=== PATIENT | female | born 1930 | race Caucasian/White ===

== ENCOUNTER 2016-08-27 04:34 | Inpatient (IN) | payer MEDICARE, OTHER ==
[2016-08-27] MEDS ORDERED: FENTANYL CITRATE INJ/PF 100 MCG/2 ML AMPUL IV ONE ×2 (04:54→06:18)
--- NOTE | 2016-08-27 04:55 | ER Document Report ---
ED GI/ - General Chief Complaint: Abdominal Pain Stated Complaint: ABDOMINAL PAIN Time Seen by Provider: 08/27/16 04:51 Notes: Patient is an 85-year-old female who comes emergency department for chief complaint of abdominal pain, pain is in the center of her abdomen, she states it started today and has not gone away. She did have a bowel movement earlier today, she has not vomited, she denies nausea, she denies fever. History of umbilical hernia which she has declined treatment for in the past, she has had hysterectomy, she denies other surgeries on her abdomen. Patient is medicated for hypertension. She is not on a blood thinner. TRAVEL OUTSIDE OF THE [place] IN LAST 30 DAYS: No - Related Data Allergies/Adverse Reactions: Sulfa (Sulfonamide Antibiotics) Allergy (Verified 08/27/16 07:58) Past Medical History - General Information source: Patient - Social History Smoking Status: Never Smoker Frequency of alcohol use: None Drug Abuse: None Lives with: Family Family History: Reviewed & Not Pertinent - Past Medical History Cardiac Medical History: Reports: Hx Hypertension Musculoskeltal Medical History: Reports Hx Arthritis, Reports Hx Musculoskeletal Deformity - Immunizations Immunizations up to date: Yes Review of Systems - Review of Systems Constitutional: No symptoms reported EENT: No symptoms reported Cardiovascular: No symptoms reported Respiratory: No symptoms reported Gastrointestinal: See HPI Genitourinary: No symptoms reported Female Genitourinary: No symptoms reported Musculoskeletal: No symptoms reported Skin: No symptoms reported Hematologic/Lymphatic: No symptoms reported Neurological/Psychological: No symptoms reported Physical Exam - Vital signs Vitals: Temp Pulse Resp BP Pulse Ox 97.7 F 80 18 151/69 H 96 08/27/16 04:37 08/27/16 04:37 08/27/16 04:37 08/27/16 04:37 08/27/16 04:37 Interpretation: Normal - General General appearance: Appears well In distress: None - HEENT Head: Normocephalic, Atraumatic Eyes: Normal Pupils: PERRL - Respiratory Respiratory status: No respiratory distress Chest status: Nontender Breath sounds: Normal Chest palpation: Normal - Cardiovascular Rhythm: Regular Heart sounds: Normal auscultation Murmur: No - Abdominal Inspection: Other - umbilical hernia with some erythema, some tenderness, not significantly hard Bowel sounds: Normal Tenderness: Tender - Back Back: Normal, Nontender - Extremities General upper extremity: Normal inspection, Nontender, Normal color, Normal ROM , Normal temperature General lower extremity: Normal inspection, Nontender, Normal color, Normal ROM , Normal temperature, Normal weight bearing. No: Dilip's sign - Neurological Neuro grossly intact: Yes Cognition: Normal Orientation: AAOx4 Stephen Coma Scale Eye Opening: Spontaneous [place] Coma Scale Verbal: Oriented Stephen Coma Scale Motor: Obeys Commands [place] Coma Scale Total: 15 Speech: Normal Motor strength normal: LUE, RUE, LLE, RLE Sensory: Normal - Psychological Associated symptoms: Normal affect, Normal mood - Skin Skin Temperature: Warm Skin Moisture: Dry Skin Color: Normal Course - Re-evaluation Re-evalutation: Patient with incarcerated umbilical hernia, patient does not want to have surgery, she wants to have this reduced, there is some erythema at the site, area is not severely tender, however I am unable to reduce this. Dr. Cole to bedside, also unable to reduce this. CBC, chemistry, lactic acid are unremarkable. Discussed with surgery, Dr. Rayo, he will come and evaluate the patient. Surgeon cannot reduce this at bedside, recommend CAT scan be performed. Also adding preop labs on request. Patient was evaluated by surgeon Dr. Ash, he has canceled the CAT scan, states he will take the patient to the operating room. - Vital Signs Vital signs: Temp Pulse Resp BP Pulse Ox 97.7 F 80 18 151/69 H 96 08/27/16 04:37 08/27/16 04:37 08/27/16 04:37 08/27/16 04:37 08/27/16 04:37 - Laboratory Result Diagrams: 08/27/16 05:10 08/27/16 05:10 Laboratory results interpreted by me: 08/27/16 05:10 Sodium 129.3 L Glucose 114 H Discharge - Discharge Clinical Impression: Strangulated umbilical hernia Abdominal pain Qualifiers: Abdominal location: generalized Qualified Code(s): R10.84 - Generalized abdominal pain Condition: Serious Disposition: ADMITTED INPATIENT Admitting Provider: Surgicalist Unit Admitted: OR Referrals: ASAF CHUA DO [Primary Care Provider] - Follow up as needed
[2016-08-27 05:24] LABS: ABSOLUTE BASOPHILS # (AUTO) 0.2 10^3/uL (0.0-0.2); ABSOLUTE LYMPHOCYTES (AUTO) 1.8 10^3/uL (0.5-4.7); ABSOLUTE MONOCYTES (AUTO) 0.5 10^3/uL (0.1-1.4); ABSOLUTE NEUT (AUTO) 5.4 10^3/uL (1.7-8.2); EOSINOPHILS % (AUTO) 0.4 % (0-6); HEMATOCRIT 37.4 % (36.0-47.0); HEMOGLOBIN 12.5 g/dL (12.0-15.5); HGB HCT DIFFERENCE 0.1; MEAN CORPUSCULAR HEMOGLOBIN 28.6 pg (27.0-33.4); MEAN CORPUSCULAR HGB CONC 33.4 g/dL (32.0-36.0); MEAN CORPUSCULAR VOLUME 86 fl (80-97); MONOCYTES % (AUTO) 6.1 % (3-13); RED BLOOD COUNT 4.37 10^6/uL (3.72-5.28); RED CELL DISTRIBUTION WIDTH 13.6 % (11.5-14.0); SEGMENTED NEUTROPHILS % (AUTO) 68.5 % (42-78); WHITE BLOOD COUNT 7.9 10^3/uL (4.0-10.5)
[2016-08-27 05:42] LABS: ALANINE AMINOTRANSFERASE 26 U/L (9-52); ALBUMIN 3.7 g/dL (3.5-5.0); ALKALINE PHOSPHATASE 73 U/L (38-126); ANION GAP 7 (5-19); ASPARTATE AMINO TRANSFERASE 32 U/L (14-36); BILIRUBIN,DIRECT 0.2 mg/dL (0.0-0.4); BILIRUBIN,TOTAL 0.7 mg/dL (0.2-1.3); BLOOD UREA NITROGEN 8 mg/dL (7-20); CARBON DIOXIDE 24 mmol/L (22-30); CHLORIDE 98 mmol/L (98-107); CREATININE RESULT 0.71 mg/dL (0.52-1.25); GLUCOSE 114 mg/dL (75-110); POTASSIUM 3.8 mmol/L (3.6-5.0); SODIUM 129.3 mmol/L (137-145)
[2016-08-27] MEDS ORDERED: NORMAL SALINE 1000 ML 500 ML IV ONE (06:13)
[2016-08-27] MEDS ORDERED: NORMAL SALINE IV PRN (06:20)
[2016-08-27] MEDS ORDERED: FENTANYL CITRATE INJ/PF 100 MCG/2 ML AMPUL ONE ×2 (06:23→08:29)
[2016-08-27 06:36] LABS: PROTHROMBIN TIME 13.9 SEC (11.4-15.4)
--- NOTE | 2016-08-27 06:58 | RADIOLOGY REPORT (SQ) ---
EXAM DESCRIPTION: CHEST SINGLE VIEW COMPLETED DATE/TIME: 08/27/2016 6:44 am REASON FOR STUDY: pre-op COMPARISON: 06.21.2008 EXAM PARAMETERS: NUMBER OF VIEWS: One view. TECHNIQUE: Single frontal radiographic view of the chest acquired. RADIATION DOSE: NA LIMITATIONS: None. FINDINGS: LUNGS AND PLEURA: Mild -moderate interstitial markings. Small calcified granulomata. MEDIASTINUM AND HILAR STRUCTURES: No masses. Contour normal. HEART AND VASCULAR STRUCTURES: Heart normal in size. Normal vasculature. BONES: No acute findings. HARDWARE: None in the chest. OTHER: No other significant finding. IMPRESSION: Mild-moderate chronic interstitial lung disease. TECHNICAL DOCUMENTATION: JOB ID: [id number]
--- NOTE | 2016-08-27 07:29 | CONSULTATION REPORT E ---
Consultation Report NAME: JANNIE REYNAGA : 1930 AGE: 85Y DATE: 08/27/2016 TO: CHANELL CASAS M.D. FROM: KENTON BALBUENA Requesting Physician REASON FOR CONSULTATION: Patient with umbilical hernia that was unable to be reduced by the ER physician. HISTORY OF PRESENT ILLNESS: This is an 85-year-old female who is known to have an umbilical hernia since about 1997 when she tried to lift some heavy object. Since then it would come out, but she will be able to reduce it easily. Last night after dinner, she tried to bend over and lift some heavy object, when she felt it pop and since then unable to reduce it. She went to the emergency room this morning and several attempts were made to reduce it. I came in and patient was given IV Fentanyl and attempted to reduce the umbilical hernia, but unable to do so. The patient complained of some nausea, but no vomiting. She had a bowel movement this morning. PAST HISTORY: History of hypertension and takes hydrochlorothiazide. 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 In April, she also noted a lump in her left breast and again refused to have anything done. ALLERGIES: None known. SOCIAL HISTORY: Denies smoking, or drinking, or drug use. FAMILY HISTORY: Noncontributory. REVIEW OF SYSTEMS: As in HPI. Complained about pain in the umbilical area with some nausea. Some history of sciatica pains. All other systems are unremarkable. PHYSICAL EXAMINATION: GENERAL: Well-developed, well-nourished 85-year-old female, alert and oriented in no apparent significant pains. HEENT: Neck is supple, no thyromegaly. LUNGS: Clear. HEART: Regular sinus rhythm. ABDOMEN: Soft with an umbilical hernia. An attempt to reduce the hernia after giving the patient Fentanyl IV was done. I was still not able to reduce the hernia. Patient felt nauseous when trying to reduce it. IMPRESSION: Incarcerated umbilical hernia. PLANS: The patient for workup including CT scan with p.o. contrast and possible repair of the hernia in the OR. DICTATING PHYSICIAN: CHANELL CASAS M.D. [id number] PHY#: [id number] ID: [id number] JOB#: [id number] ACCT: [id number] cc:CHANELL CASAS M.D. >
[2016-08-27] MEDS ORDERED: HYDROMORPHONE HCL INJ/PF 2 MG/ML AMPULE ONE (08:29)
[2016-08-27] MEDS ORDERED: PROPOFOL INJ 200 MG/20 ML VIAL IV ONE (08:30)
[2016-08-27] MEDS ORDERED: ACETAMINOPHEN 100 ML IV ONE (08:30)
[2016-08-27] MEDS ORDERED: IBUPROFEN INJ 800 MG/8 ML VIAL IV ONE (08:30)
[2016-08-27] MEDS ORDERED: MIDAZOLAM 2 MG/2 ML INJ ONE (08:30)
[2016-08-27] MEDS ORDERED: EPHEDRINE SULFATE INJ 50 MG/1 ML AMPULE ONE ×2 (08:30→09:46)
[2016-08-27] MEDS: BUPIVACAINE HCL 0.25 % INJ/PF (2.5 MG/1 ML) 30 ML VIAL ONE ×2 (08:57→09:35)
[2016-08-27] MEDS ORDERED: CEFAZOLIN INJ 1 GM VIAL ONE (09:15)
[2016-08-27] MEDS ORDERED: EPINEPHRINE INJ/PF 1 MG/1 ML AMPULE ONE (09:45)
[2016-08-27] MEDS ORDERED: FENTANYL CITRATE INJ/PF 100 MCG/2 ML AMPUL IV PRN ×2 (10:27)
[2016-08-27] MEDS ORDERED: PROMETHAZINE HCL INJ 25 MG/1 ML VIAL IV PRN (10:27)
[2016-08-27] MEDS ORDERED: MEPERIDINE HCL/PF INJ 25 MG/1 ML DISP.SYRIN IV PRN (10:27)
[2016-08-27] MEDS ORDERED: OXYCODONE-ACETAMINOPHEN 5-325 MG TABLET PO PRN (10:27)
[2016-08-27] MEDS ORDERED: DIPHENHYDRAMINE HCL 50 MG/ML VIAL IV PRN (10:27)
[2016-08-27] MEDS ORDERED: ONDANSETRON HCL INJ/PF 4 MG/2 ML SDV IV PRN (10:27)
--- NOTE | 2016-08-27 10:42 | EKG REPORT ---
SEVERITY:- ABNORMAL ECG - SINUS RHYTHM PROBABLE LEFT ATRIAL ABNORMALITY RBBB AND LAFB LEFT VENTRICULAR HYPERTROPHY : Confirmed by: Cyndi Love MD 27-Aug-2016 10:42:40
--- NOTE | 2016-08-27 10:55 | Operative Report ---
Operative Report DATE OF SURGERY: 08/27/16 PREOPERATIVE DIAGNOSIS: Incarcerated ventral hernia POSTOPERATIVE DIAGNOSIS: Incarcerated ventral hernia and umbilical hernia OPERATION: Incarcerated ventral and umbilical hernia repair SURGEON: FARZANEH JAY ANESTHESIA: GA TISSUE REMOVED OR ALTERED: Hernia sac. Omentum. COMPLICATIONS: None ESTIMATED BLOOD LOSS: 50 cc INTRAOPERATIVE FINDINGS: Umbilical hernia and supraumbilical ventral hernia with incarcerated omentum and portion of transverse colon with no evidence of colon ischemia. Complicated hernia sacs. PROCEDURE: Informed consent was obtained. Patient was brought to the operating room placed on the operating room table in the supine position. After satisfactory induction of general anesthesia patient's abdomen was prepped and draped in usual sterile fashion. A vertical incision beginning at the supraumbilical region and extending to the infraumbilical region was made. Dissection was carried down. 2 hernia sacs were encountered one at the supraumbilical region and one at the umbilicus. Both of these hernia sacs were about 5 cm in size each. The hernia sacs were opened revealing incarcerated omentum with some bloody fluid within. Portion of the transverse colon was within the hernia sac as well but it appeared viable with no evidence of ischemia. The 2 fascial defects were connected by cutting the intervening fascia. This allowed complete dissection of the very complicated hernia sacs with the fused omentum to portions of the hernia sacs. Great care was taken to avoid injury to the underlying transverse colon. Portion of the omentum was taken by clamping dividing and tying. There was a ridge of fibrous tissue from the transverse colon to the omentum back to the transverse colon that would have created a potential internal hernia. To make sure that I did not create an enterotomy in the transverse colon this fibrous tissue was divided using a Endo RUDY stapling device. Hemostasis appeared excellent. The omentum and transverse colon was dropped back into the peritoneal cavity. The hernia sacs were completely excised. The total fascial defect measured about 5 cm in length. Hernia repair was performed using interrupted Ethibond sutures. The repair came together well without tension. The bellybutton was tacked to the underlying fascia using interrupted Vicryl suture. Marcaine was injected. Nahid drain was placed into the subcutaneous space and brought out through separate stab incision and sutured in place. Skin was closed with deep dermal interrupted Vicryl sutures followed by staple closure of the skin. Patient tolerated procedure well with no apparent complications and was taken to the recovery area in stable condition.
[2016-08-27] MEDS ORDERED: MORPHINE SULFATE 10 MG/ML INJ IV PRN (11:00)
[2016-08-27] MEDS ORDERED: GLUCAGON,HUMAN RECOMB 1 MG INJ SUBCUT PRN (11:00)
[2016-08-27] MEDS ORDERED: DEXTROSE 40% GEL 15 GM TUBE PO PRN ×2 (11:00)
[2016-08-27] MEDS ORDERED: DEXTROSE 50%-WATER 25 GM/50 ML DISP.SYRIN IV PRN ×2 (11:00)
--- NOTE | 2016-08-27 11:00 | PDOC PROGRESS REPORT ---
Subjective Progress Note for:: 08/27/16 - Preoperative note prior to surgery Subjective:: Pain at the mid abdomen with nausea Physical Exam Vital Signs: Temp Pulse Resp BP Pulse Ox 97.9 F 79 16 136/48 H 95 08/27/16 08:38 08/27/16 08:37 08/27/16 08:37 08/27/16 08:37 08/27/16 08:37 Intake & Output 08/26/16 08/27/16 08/28/16 06:59 06:59 06:59 Intake Total 0 Output Total 0 Balance 0 General appearance: PRESENT: no acute distress, cooperative Respiratory exam: PRESENT: clear to auscultation kerrie Cardiovascular exam: PRESENT: RRR GI/Abdominal exam: PRESENT: other - Obese, palpable plum-sized mass at the supraumbilical region with mild tenderness. Non-reducible. No overlying skin erythema nor induration. Abdomen soft and nontender otherwise. Results Impressions: Chest X-Ray 08/27/16 06:18 IMPRESSION: Mild-moderate chronic interstitial lung disease. Assessment & Plan - Diagnosis (1) Incarcerated ventral hernia Is this a current diagnosis for this admission?: YesPlan: We will plan to take the patient to the operating room for emergency exploration with ventral hernia repair, possible small bowel resection. I have discussed with the patient the risk and benefits of the procedure including risk of adjacent organ injury, cardiopulmonary complications, bleeding, infection, recurrence. I have informed the patient that I will most likely not use mesh in an acute setting with incarceration to avoid the risk of mesh infection. Patient understands that she will have a higher risk for recurrence. Understands and agrees to proceed with surgery.
[2016-08-27] MEDS ORDERED: GLYCOPYRROLATE INJ 0.4 MG/2 ML VIAL ONE (12:12)
[2016-08-27] MEDS ORDERED: LIDOCAINE 2% INJ-PF (20 MG/ML) 10 ML AMPUL ONE (12:12)
[2016-08-27] MEDS ORDERED: ROCURONIUM BROMIDE INJ 50 MG/5 ML VIAL IV ONE (12:12)
[2016-08-27] MEDS ORDERED: SUCCINYLCHOLINE CHLORIDE INJ 200 MG/10 ML VIAL ONE (12:12)
[2016-08-27] MEDS ORDERED: DEXAMETHASONE SOD PHOSPHATE INJ 4 MG/1 ML VIAL ONE (12:12)
[2016-08-27] MEDS ORDERED: NEOSTIGMINE METHYLSULFATE 10 MG/10 ML VIAL ONE (12:12)
[2016-08-27] MEDS ORDERED: ONDANSETRON HCL INJ/PF 4 MG/2 ML SDV ONE (12:12)
[2016-08-27] MEDS: ONDANSETRON 4 MG TAB.RAPDIS PO PRN ×2 (15:15→19:39)
[2016-08-27] MEDS: NORMAL SALINE IV PRN (17:54)
--- NOTE | 2016-08-27 18:35 | PDOC PROGRESS REPORT ---
Subjective Progress Note for:: 08/27/16 Subjective:: Feels well. Abdominal pain markedly improved from preoperative condition. No nausea or vomiting. Physical Exam Vital Signs: Temp Pulse Resp BP Pulse Ox 97.6 F 82 17 95/47 L 100 08/27/16 17:30 08/27/16 17:30 08/27/16 17:30 08/27/16 17:30 08/27/16 17:30 Intake & Output 08/26/16 08/27/16 08/28/16 06:59 06:59 06:59 Intake Total 200 Output Total 200 Balance 0 Weight 82.1 kg General appearance: PRESENT: no acute distress, cooperative Respiratory exam: PRESENT: clear to auscultation kerrie Cardiovascular exam: PRESENT: RRR GI/Abdominal exam: PRESENT: other - Soft, nondistended, mild appropriate tenderness at the surgical site. Drain has small amount of bloody output Results Impressions: Chest X-Ray 08/27/16 06:18 IMPRESSION: Mild-moderate chronic interstitial lung disease. Assessment & Plan - Diagnosis (1) Incarcerated ventral hernia Is this a current diagnosis for this admission?: YesPlan: Status post repair. Patient looks good. Encourage ambulation tonight.
--- NOTE | 2016-08-28 10:41 | PROGRESS NOTE E ---
Progress Note NAME: JANNIE REYNAGA : 1930 AGE: 85Y DATE: 08/28/2016 ROOM: [facility] SUBJECTIVE: This is her first postop day. She denies any pains. Abdomen is soft, nontender. The drain is just a small amount of serosanguineous drainage. PLAN: Start her on clear liquids this morning and progress as tolerated. She could probably discharge in 24 hours, and I will pull the drain out just before her discharge. DICTATING PHYSICIAN: CHANELL CASAS M.D. [id number] PHY#: [id number] ID: [id number] JOB#: [id number] ACCT: [id number] cc: >
[2016-08-28] MEDS: ENOXAPARIN SODIUM INJ 40 MG/0.4 ML DISP.SYRIN SUBCUT SCH (11:02)
[2016-08-28] MEDS: NORMAL SALINE IV PRN (16:06)
[2016-08-29] MEDS: NORMAL SALINE IV PRN (03:08)
[2016-08-29] MEDS: ENOXAPARIN SODIUM INJ 40 MG/0.4 ML DISP.SYRIN SUBCUT SCH (10:12)
[2016-08-29 12:57] VITALS: BP 132/49
== END 2016-08-29 13:25 | disposition home or self-care (01) | DRG 355 ==
LOC: ER 04:34 → EH 08:36 → UNDOADMIN 08:36 → EH 11:00 → 4N 12:33
PROVIDERS: ATTEND Surgery
PROC: 0WQF0ZZ Repair Abdominal Wall, Open Approach (ICD-10-PCS; principal; 2016-08-27 09:00)
DX: K43.6 Other and unspecified ventral hernia with obstruction, without gangrene (principal); K42.9 Umbilical hernia without obstruction or gangrene; I10 Essential (primary) hypertension; Z79.899 Other long term (current) drug therapy; Z85.820 Personal history of malignant melanoma of skin; M19.90 Unspecified osteoarthritis, unspecified site
CPT/HCPCS: 36415; 71010; 752; 80053; 83605; 85025; 85610; 85730; 88305; 93005; 93010; 96374; 96376; 99285; J0131; J0171; J0330; J0690; J1100; J1170; J1741; J2250; J2405; J2704; J3010; J3490; J7030; S0119

== ENCOUNTER → 2016-10-21 | Outpatient (CLI) | payer MEDICARE, OTHER ==
--- NOTE | 2016-10-23 14:11 | RADIOLOGY REPORT (SQ) ---
EXAM DESCRIPTION: CHEST PA/LAT COMPLETED DATE/TIME: 10/21/2016 6:33 pm REASON FOR STUDY: RIB PAIN, PNEUMONIA COMPARISON: 06/21/2008 EXAM PARAMETERS: NUMBER OF VIEWS: two views TECHNIQUE: Digital Frontal and Lateral radiographic views of the chest acquired. RADIATION DOSE: NA LIMITATIONS: none FINDINGS: LUNGS AND PLEURA: No opacities, masses or pneumothorax. No pleural effusion. MEDIASTINUM AND HILAR STRUCTURES: No masses or contour abnormalities. HEART AND VASCULAR STRUCTURES: Heart normal size. No evidence for failure. BONES: Scoliosis. HARDWARE: None in the chest. OTHER: No other significant finding. IMPRESSION: No acute pulmonary disease. TECHNICAL DOCUMENTATION: JOB ID: [id number] [employer]- All Rights Reserved
== END ==
LOC: RAD 17:35
PROVIDERS: ATTEND Student in an Organized Health Care Education/Training Program
DX: J18.9 Pneumonia, unspecified organism (principal); R07.81 Pleurodynia
CPT/HCPCS: 71020

== ENCOUNTER 2016-10-28 09:02 | Emergency (ER) | payer MEDICARE, OTHER ==
[2016-10-28 09:51] LABS: ABSOLUTE BASOPHILS # (AUTO) 0.1 10^3/uL (0.0-0.2); ABSOLUTE LYMPHOCYTES (AUTO) 1.2 10^3/uL (0.5-4.7); ABSOLUTE MONOCYTES (AUTO) 0.5 10^3/uL (0.1-1.4); ABSOLUTE NEUT (AUTO) 6.9 10^3/uL (1.7-8.2); BASOPHILS % (AUTO) 0.8 % (0-2); HEMATOCRIT 39.8 % (36.0-47.0); HGB HCT DIFFERENCE 2.2; LYMPHOCYTES % (AUTO) 14.2 % (13-45); MEAN CORPUSCULAR HEMOGLOBIN 29.1 pg (27.0-33.4); MEAN CORPUSCULAR HGB CONC 35.1 g/dL (32.0-36.0); MEAN CORPUSCULAR VOLUME 83 fl (80-97); WHITE BLOOD COUNT 8.8 10^3/uL (4.0-10.5)
[2016-10-28 10:07] LABS: ALANINE AMINOTRANSFERASE 32 U/L (9-52); ALBUMIN 3.5 g/dL (3.5-5.0); ALKALINE PHOSPHATASE 139 U/L (38-126); ANION GAP 10 (5-19); ASPARTATE AMINO TRANSFERASE 31 U/L (14-36); BILIRUBIN,DIRECT 0.5 mg/dL (0.0-0.4); BILIRUBIN,TOTAL 0.7 mg/dL (0.2-1.3); BLOOD UREA NITROGEN 22 mg/dL (7-20); CALCIUM 10.1 mg/dL (8.4-10.2); CARBON DIOXIDE 24 mmol/L (22-30); CHLORIDE 93 mmol/L (98-107); CREATININE RESULT 0.87 mg/dL (0.52-1.25); GLUCOSE 103 mg/dL (75-110); POTASSIUM 3.9 mmol/L (3.6-5.0); TOTAL PROTEIN 6.4 g/dL (6.3-8.2)
--- NOTE | 2016-10-28 10:20 | RADIOLOGY REPORT (SQ) ---
EXAM DESCRIPTION: ACUTE ABDOMEN SERIES COMPLETED DATE/TIME: 10/28/2016 10:10 am REASON FOR STUDY: bed 15 per md constipation COMPARISON: Chest films 10/21/2016, 08/27/2016, 06/21/2008 CT abdomen pelvis 09/28/2006 NUMBER OF VIEWS: Three views. TECHNIQUE: Frontal chest, supine abdomen and upright abdomen radiographic images acquired. LIMITATIONS: None. FINDINGS: CHEST: No focal infiltrates. Stable borderline cardiomegaly. No pleural effusions. No p neumothorax. Old healed right and left lower lateral rib fractures. FREE AIR: None. No abnormal gas collections. BOWEL GAS PATTERN: Nonobstructive pattern. No dilated loops or air fluid levels. CALCIFICATIONS: Calcified pelvic phleboliths. Arterial vascular calcification without calcified abdo margaret aortic aneurysm HARDWARE: None in the abdomen. SOFT TISSUES: No gross mass or suggestion of organomegaly. BONES: Convex rightward lumbar curvature. OTHER: No other significant finding. IMPRESSION: Nonobstructive bowel gas pattern No plain film evidence of constipation No acute infiltrates TECHNICAL DOCUMENTATION: JOB ID: [id number]- All Rights Reserved
[2016-10-28] MEDS ORDERED: SENNOSIDES/DOCUSATE 8.6-50 MG 1 EACH TABLET PO ONE (10:46)
--- NOTE | 2016-10-28 10:48 | ER Document Report ---
ED GI/ - General Chief Complaint: Constipation Stated Complaint: CONSTIPATION Time Seen by Provider: 10/28/16 09:53 Mode of Arrival: Ambulatory Information source: Patient Notes: Patient is an 85-year-old female who presents to the ER today with chronic constipation. Patient states that this time she has not gone in 3 days. She has tried MiraLAX and a fleets enema at home with no relief. She also tried to disimpact herself with no relief. She admits to all over abdominal pain but no nausea, vomiting, fever, chills, diarrhea, blood coming from anywhere. TRAVEL OUTSIDE OF THE [place] IN LAST 30 DAYS: No - Related Data Allergies/Adverse Reactions: Sulfa (Sulfonamide Antibiotics) Allergy (Mild, Verified 10/28/16 09:13) Past Medical History - General Information source: Patient - Social History Smoking Status: Never Smoker Chew tobacco use (# tins/day): No Frequency of alcohol use: None Drug Abuse: None Family History: Reviewed & Not Pertinent - Past Medical History Cardiac Medical History: Reports: Hx Hypertension Musculoskeltal Medical History: Reports Hx Arthritis, Reports Hx Musculoskeletal Deformity Psychiatric Medical History: Reports: Hx Depression - Immunizations Immunizations up to date: Yes Review of Systems - Review of Systems Constitutional: No symptoms reported EENT: No symptoms reported Cardiovascular: No symptoms reported Respiratory: No symptoms reported Gastrointestinal: See HPI Genitourinary: No symptoms reported Female Genitourinary: No symptoms reported Musculoskeletal: No symptoms reported Skin: No symptoms reported Hematologic/Lymphatic: No symptoms reported Neurological/Psychological: No symptoms reported Physical Exam - Vital signs Vitals: Temp Pulse Resp BP Pulse Ox 97.6 F 76 16 135/61 H 95 10/28/16 12:21 10/28/16 12:21 10/28/16 12:21 10/28/16 12:21 10/28/16 12:21 - Notes Notes: PHYSICAL EXAMINATION: GENERAL: Uncomfortable, but in no acute distress. HEAD: Atraumatic, normocephalic. EYES: Pupils equal round and reactive to light, extraocular movements intact, sclera anicteric, conjunctiva are normal. NECK: Normal range of motion, supple without lymphadenopathy LUNGS: CTAB and equal. No wheezes rales or rhonchi. HEART: Regular rate and rhythm without murmurs ABDOMEN: Soft, mild diffuse tenderness. No guarding, no rebound BACK: no vertebral tenderness, normal ROM GI/: no CVA tenderness Rectal: Slightly decreased tone, small stool balls in rectal vault, no blood EXTREMITIES: Normal range of motion, no pitting edema. No cyanosis. NEUROLOGICAL: Cranial nerves grossly intact. Normal sensory/motor exams. PSYCH: Normal mood, normal affect. SKIN: Warm, Dry, normal turgor, no rashes or lesions noted Course - Re-evaluation Re-evalutation: 10/29/16 08:52 X-ray was performed which reported a normal bowel gas pattern and no fecal impaction or constipation noted on x-ray. Patient was given mineral oil enema here and I did attempt disimpaction, but there were only a few small stool balls in the rectum that I could not really reach to get out. I did prescribe patient senna plus tablets. - Vital Signs Vital signs: Temp Pulse Resp BP Pulse Ox 97.6 F 76 16 135/61 H 95 10/28/16 12:21 10/28/16 12:21 10/28/16 12:21 10/28/16 12:21 10/28/16 12:21 - Laboratory Result Diagrams: 10/28/16 09:40 10/28/16 09:40 Laboratory results interpreted by me: 10/28/16 10/28/16 09:40 09:40 Seg Neutrophils % 79.0 H Sodium 127.0 L Chloride 93 L BUN 22 H Direct Bilirubin 0.5 H Alkaline Phosphatase 139 H Discharge - Discharge Clinical Impression: Constipation Qualifiers: Constipation type: unspecified constipation type Qualified Code(s): K59.00 - Constipation, unspecified Condition: Stable Disposition: HOME, SELF-CARE Instructions: Constipation ([facility]), Laxative ([facility]) Additional Instructions: Return immediately for any new or worsening symptoms. Follow up with primary care provider, call tomorrow to make followup appointment. Prescriptions: Sennosides/Docusate 8.6-50 mg [Senna Plus Tablet] 1 tab PO BIDP PRN #10 tab PRN Reason: Referrals: ASAF CHUA DO [Primary Care Provider] - Follow up as needed
[2016-10-28] MEDS ORDERED: MINERAL OIL ENEMA 133 ML PR ONE (11:03)
[2016-10-28 12:31] VITALS: BP 135/61
== END 2016-10-28 12:31 | disposition home or self-care (01) ==
LOC: ER 09:02
DX: K59.00 Constipation, unspecified (principal); R10.84 Generalized abdominal pain; I10 Essential (primary) hypertension; Z88.2 Allergy status to sulfonamides
CPT/HCPCS: 99284; 36415; 85025; 80053; 74022; A9270; J3490

== ENCOUNTER 2016-11-02 14:22 | Inpatient (IN) | payer MEDICARE, OTHER ==
--- NOTE | 2016-11-02 14:47 | ER Document Report ---
ED General - General Stated Complaint: WEAKNESS Time Seen by Provider: 11/02/16 14:29 Mode of Arrival: Medic Information source: Patient, Relative TRAVEL OUTSIDE OF THE [place] IN LAST 30 DAYS: No - HPI Patient complains to provider of: Leg swelling Onset: Yesterday Quality of pain: No pain Severity: Mild Associated symptoms: None Exacerbated by: Denies Relieved by: Denies Similar symptoms previously: No Recently seen / treated by doctor: No Notes: Patient is an 85-year-old female who is a very poor historian. Apparently, patient was seen in her home today by the [facility] paramedics for follow-up. They noted that her ankles appeared to be markedly edematous therefore she was sent to the emergency department for evaluation of this. She did not complain of any shortness of breath or chest pain. She states she is on a water pill but does not know the name of it. Denies any other complaints or problems at this time. - Related Data Allergies/Adverse Reactions: Sulfa (Sulfonamide Antibiotics) Allergy (Mild, Verified 10/28/16 09:13) Past Medical History - General Information source: Patient, Relative - Social History Smoking Status: Never Smoker Family History: Reviewed & Not Pertinent - Past Medical History Cardiac Medical History: Reports: Hx Hypertension Musculoskeltal Medical History: Reports Hx Arthritis, Reports Hx Musculoskeletal Deformity Psychiatric Medical History: Reports: Hx Depression - Immunizations Immunizations up to date: Yes Review of Systems - Review of Systems Constitutional: No symptoms reported EENT: No symptoms reported Cardiovascular: Edema Respiratory: No symptoms reported Gastrointestinal: No symptoms reported -: Yes All other systems reviewed and negative Physical Exam - Vital signs Vitals: Temp Resp BP Pulse Ox 98.4 F 16 134/66 H 95 11/02/16 14:45 11/02/16 14:45 11/02/16 14:45 11/02/16 14:45 Interpretation: Normal - General General appearance: Appears well, Alert - HEENT Head: Normocephalic, Atraumatic Conjunctiva: Normal Mouth/Lips: Normal Mucous membranes: Moist Pharynx: Normal Neck: Normal - Respiratory Respiratory status: No respiratory distress Chest status: Nontender Breath sounds: Normal Chest palpation: Normal - Cardiovascular Rhythm: Regular Heart sounds: Normal auscultation Normal capillary refill: Yes - Abdominal Inspection: Normal Distension: No distension Bowel sounds: Normal Tenderness: Nontender - Extremities General upper extremity: Normal inspection General lower extremity: Edema - 2+ pedal Ankle: Edema Foot: Normal - Neurological Neuro grossly intact: Yes Cognition: Normal Orientation: AAOx4 Stephen Coma Scale Eye Opening: Spontaneous Stephen Coma Scale Verbal: Oriented [place] Coma Scale Motor: Obeys Commands Stephen Coma Scale Total: 15 Speech: Normal - Skin Skin Temperature: Warm Skin Moisture: Dry Skin irregularity: negative: Rash Course - Re-evaluation Re-evalutation: 11/02/16 16:37 Discussed with hospitalist, Dr. Avila, for admission. Sodium repeated per his request. Patient given gentle hydration of normal saline. - Vital Signs Vital signs: Temp Pulse Resp BP Pulse Ox 98.4 F 16 134/66 H 95 11/02/16 14:45 11/02/16 14:45 11/02/16 14:45 11/02/16 14:45 - Laboratory Result Diagrams: 11/02/16 15:17 11/02/16 15:17 Laboratory results interpreted by me: 11/02/16 11/02/16 15:17 15:17 Sodium 112.2 L* Chloride 82 L BUN 23 H Direct Bilirubin 0.5 H AST 137 H Alkaline Phosphatase 220 H NT-Pro-B Natriuret Pep 2430 H Total Protein 5.6 L Albumin 3.0 L - Diagnostic Test Radiology reviewed: Reports reviewed - EKG Interpretation by Me EKG shows normal: Sinus rhythm Rate: Normal - 78 Lizella/QRS: RBBB Voltage: Consistant with [facility] Discharge - Discharge Clinical Impression: Hyponatremia, Pedal edema Condition: Fair Disposition: ADMITTED OBSERVATION Admitting Provider: Hospitalist Unit Admitted: Telemetry
[2016-11-02 15:26] LABS: ABSOLUTE BASOPHILS # (AUTO) 0.1 10^3/uL (0.0-0.2); ABSOLUTE LYMPHOCYTES (AUTO) 1.8 10^3/uL (0.5-4.7); ABSOLUTE MONOCYTES (AUTO) 0.5 10^3/uL (0.1-1.4); ABSOLUTE NEUT (AUTO) 7.2 10^3/uL (1.7-8.2); BASOPHILS % (AUTO) 0.6 % (0-2); EOSINOPHILS % (AUTO) 0.5 % (0-6); HEMATOCRIT 36.4 % (36.0-47.0); HEMOGLOBIN 13.1 g/dL (12.0-15.5); HGB HCT DIFFERENCE 2.9; LYMPHOCYTES % (AUTO) 18.7 % (13-45); MEAN CORPUSCULAR HEMOGLOBIN 29.1 pg (27.0-33.4); MEAN CORPUSCULAR HGB CONC 35.9 g/dL (32.0-36.0); MEAN CORPUSCULAR VOLUME 81 fl (80-97); MONOCYTES % (AUTO) 5.1 % (3-13); RED BLOOD COUNT 4.49 10^6/uL (3.72-5.28); RED CELL DISTRIBUTION WIDTH 13.7 % (11.5-14.0); SEGMENTED NEUTROPHILS % (AUTO) 75.1 % (42-78); WHITE BLOOD COUNT 9.6 10^3/uL (4.0-10.5)
--- NOTE | 2016-11-02 15:32 | RADIOLOGY REPORT (SQ) ---
EXAM DESCRIPTION: CHEST SINGLE VIEW COMPLETED DATE/TIME: 11/02/2016 2:53 pm REASON FOR STUDY: peripheral edema COMPARISON: 10/21/2016 NUMBER OF VIEWS: One view. TECHNIQUE: Single frontal radiographic view of the chest acquired. LIMITATIONS: None. FINDINGS: LUNGS AND PLEURA: No opacities, masses or pneumothorax. No pleural effusion. Attenuated bl ood vessels and flattened jody-diaphragms. MEDIASTINUM AND HILAR STRUCTURES: No masses. Contour normal. HEART AND VASCULAR STRUCTURES: Stable cardiomegaly. BONES: No acute findings. HARDWARE: None in the chest. OTHER: No other significant finding. IMPRESSION: COPD. NO ACUTE RADIOGRAPHIC FINDING IN THE CHEST. TECHNICAL DOCUMENTATION: JOB ID: [id number] [employer]- All Rights Reserved
[2016-11-02 16:01] LABS: ALANINE AMINOTRANSFERASE 38 U/L (9-52); ALKALINE PHOSPHATASE 220 U/L (38-126); ASPARTATE AMINO TRANSFERASE 137 U/L (14-36); BILIRUBIN,DIRECT 0.5 mg/dL (0.0-0.4); BILIRUBIN,TOTAL 0.8 mg/dL (0.2-1.3); BLOOD UREA NITROGEN 23 mg/dL (7-20); CALCIUM 9.1 mg/dL (8.4-10.2); CARBON DIOXIDE 24 mmol/L (22-30); CHLORIDE 82 mmol/L (98-107); CREATININE RESULT 0.77 mg/dL (0.52-1.25); GLUCOSE 92 mg/dL (75-110); POTASSIUM 4.1 mmol/L (3.6-5.0); TOTAL PROTEIN 5.6 g/dL (6.3-8.2)
[2016-11-02 16:03] LABS: ANION GAP 6 (5-19)
[2016-11-02 16:07] LABS: SODIUM 112.2 mmol/L (137-145)
[2016-11-02] MEDS ORDERED: NORMAL SALINE 1000 ML 1,000 ML IV PRN ×2 (16:12→18:18)
[2016-11-02 16:24] LABS: TROPONIN I 0.059 ng/mL
[2016-11-02] MEDS ORDERED: ACETAMINOPHEN 325 MG TABLET PO PRN (18:18)
[2016-11-02] MEDS ORDERED: ONDANSETRON HCL INJ/PF 4 MG/2 ML SDV IV PRN (18:24)
--- NOTE | 2016-11-02 18:42 | PDOC H&P ---
History of Present Illness Admission Date/PCP: 11/02/16 16:43 ASAF CHUA DO Patient complains of: ankle edema History of Present Illness: JANNIE REYNAGA is an 85 year old female, with history of hypertension who was started on diuretics recently approximately 2-3 months was brought to the hospital because of ankle edema. There is no paroxysmal nocturnal dyspnea nor any orthopnea. No chest pain or shortness of breath as well. Patient has chronic limited mobility due to musculoskeletal pain brought about by strain and sprain of her abdominal muscles she sustained about 4-6 months ago after hernia surgery. She had a history of multiple sclerosis and for the past 2 years she had limited mobility due to fear of falling. She has chronic lower extremity weakness. For the past 2 days she was noted to have ankle edema and edema of the feet as well bilaterally. She was seen by visiting nurse who reportedly advised him to go to the emergency room for evaluation. The patient denies any wheezing, fever, leg pain, chest pain nor pleurisy. In the emergency room her serum sodium was found to be low at 112. Patient was given normal saline. She was then referred for admission. Family noted that the patient having some depressed mood intermittently, and likewise more irritable than usual. Past Medical History Cardiac Medical History: Reports: Hypertension EENT Medical History: Reports: Other - Glaucoma Neurological Medical History: Reports: Other - Multiple sclerosis Musculoskeltal Medical History: Reports: Arthritis Psychiatric Medical History: Reports: Depression Past Surgical History Past Surgical History: Reports: Other - Hernia surgery Social History Information Source: Patient Smoking Status: Never Smoker Frequency of Alcohol Use: None Hx Recreational Drug Use: No Drugs: None Hx Prescription Drug Abuse: No - Advance Directive Resuscitation Status: Full Code Family History Family History: Hypertension Parental Family History Reviewed: Yes Children Family History Reviewed: Yes Sibling(s) Family History Reviewed.: Yes Medication/Allergy Home Medications: Brimonidine Tartrate [Alphagan P] 1 drop OU BID 08/27/16 Doxazosin Mesylate [Cardura] 8 mg PO Q12@0800,199908/27/16 Hydrochlorothiazide 25 mg PO DAILY 08/27/16 Travoprost [Travatan Z] 1 drop OU QHS 08/27/16 Sennosides/Docusate 8.6-50 mg [Senna Plus Tablet] 1 tab PO BIDP PRN #10 tab Allergies/Adverse Reactions: Sulfa (Sulfonamide Antibiotics) Allergy (Mild, Verified 10/28/16 09:13) Review of Systems Constitutional: PRESENT: weakness - Chronic and generalized. ABSENT: chills, fever(s), headache(s), night sweats, weight gain, weight loss Eyes: ABSENT: visual disturbances Ears: ABSENT: hearing changes Nose, Mouth, and Throat: ABSENT: mouth pain, sore throat Cardiovascular: PRESENT: dyspnea on exertion - Chronic, edema. ABSENT: chest pain, orthropnea, palpitations Respiratory: PRESENT: cough - Occasional. ABSENT: hemoptysis, sputum Gastrointestinal: PRESENT: constipation. ABSENT: abdominal pain, diarrhea, hematemesis, hematochezia, melena, nausea, vomiting Genitourinary: ABSENT: difficulty urinating, dysuria, hematuria Musculoskeletal: ABSENT: joint swelling Integumentary: ABSENT: pruritus, rash, wounds Neurological: ABSENT: abnormal gait, abnormal speech, confusion, dizziness, focal weakness, syncope Psychiatric: PRESENT: depression, other - Easy irritability. ABSENT: anxiety, homidical ideation, suicidal ideation Endocrine: ABSENT: cold intolerance, heat intolerance, polydipsia, polyphagia, polyuria Hematologic/Lymphatic: ABSENT: easy bleeding, easy bruising Physical Exam Vital Signs: Temp Pulse Resp BP Pulse Ox 98.2 F 19 121/72 95 11/02/16 16:56 11/02/16 17:01 11/02/16 17:01 11/02/16 17:01 General appearance: PRESENT: no acute distress, obese Head exam: PRESENT: atraumatic, normocephalic Eye exam: PRESENT: conjunctiva pale, EOMI, PERRLA. ABSENT: scleral icterus Ear exam: PRESENT: normal external ear exam, other - Patient wears a hearing aid and is hard of hearing. ABSENT: drainage Mouth exam: PRESENT: dry mucosa, neck supple, tongue midline Neck exam: ABSENT: carotid bruit, JVD, lymphadenopathy, thyromegaly Respiratory exam: PRESENT: clear to auscultation kerrie. ABSENT: rales, rhonchi, wheezes Cardiovascular exam: PRESENT: RRR, +S1, +S2. ABSENT: diastolic murmur, rubs, systolic murmur Pulses: PRESENT: normal dorsalis pedis pul Vascular exam: PRESENT: normal capillary refill GI/Abdominal exam: PRESENT: hypoactive bowel sounds, soft. ABSENT: distended, guarding, mass, organolmegaly, rebound, tenderness Rectal exam: PRESENT: deferred Extremities exam: PRESENT: full ROM, pedal edema - Bilateral and equal, other - Ankle edema bilateral and equal. ABSENT: calf tenderness, clubbing Neurological exam: PRESENT: alert, awake, oriented to person, oriented to place , oriented to time, oriented to situation Psychiatric exam: PRESENT: appropriate affect, normal mood. ABSENT: homicidal ideation, suicidal ideation Skin exam: PRESENT: dry, intact, warm. ABSENT: cyanosis, rash Results Impressions: Chest X-Ray 11/02/16 14:41 IMPRESSION: COPD. NO ACUTE RADIOGRAPHIC FINDING IN THE CHEST. Assessment & Plan - Diagnosis (1) Hyponatremia Is this a current diagnosis for this admission?: Yes (2) Pedal edema Is this a current diagnosis for this admission?: Yes (3) Constipation Qualifiers: Constipation type: unspecified constipation type Qualified Code(s): K59.00 - Constipation, unspecified Is this a current diagnosis for this admission?: Yes (4) COPD (chronic obstructive pulmonary disease) Qualifiers: COPD type: unspecified COPD Qualified Code(s): J44.9 - Chronic obstructive pulmonary disease, unspecified Is this a current diagnosis for this admission?: Yes (5) Essential hypertension Is this a current diagnosis for this admission?: Yes (6) Multiple sclerosis Is this a current diagnosis for this admission?: Yes - Time Time Spent: 50 to 70 Minutes - Inpatient Certification Based on my medical assessment, after consideration of the patient's comorbidities, presenting symptoms, or acuity I expect that the services needed warrant INPATIENT care.: Yes I certify that my determination is in accordance with my understanding of Medicare's requirements for reasonable and necessary INPATIENT services [42 CFR 412.3e].: Yes Medical Necessity: Significant Comorbidiites Make Outpatient Treatment Too Risky , Need Close Monitoring Due to Risk of Patient Decompensation, Need For IV Fluids, Risk of Diagnosis Which Will Require Inpatient Eval/Care/Monitoring Post Hospital Care: D/C Yard Person Documentation - Plan Summary Plan Summary: We will begin the patient on 3% saline 100 mL over 4 hours one time dose and recheck her sodium serially. In the meantime we will continue normal saline infusion after the 3% saline given. I will hold the diuretics and antihypertensive medications at this time. We will check a TSH and a free T4. DVT prophylaxis with Lovenox will be placed. Further testing depends on the initial evaluation as outlined above. She will be admitted on the stepdown unit.
[2016-11-02 19:11] LABS: ANION GAP 8 (5-19); BLOOD UREA NITROGEN 23 mg/dL (7-20); CALCIUM 9.1 mg/dL (8.4-10.2); CARBON DIOXIDE 22 mmol/L (22-30); CHLORIDE 84 mmol/L (98-107); CREATININE RESULT 0.72 mg/dL (0.52-1.25); GLUCOSE 82 mg/dL (75-110)
[2016-11-02 19:27] LABS: THYROID STIMULATING HORMONE 1.91 uIU/mL (0.47-4.68)
[2016-11-02 19:28] LABS: SODIUM 113.5 mmol/L (137-145)
[2016-11-02] MEDS ORDERED: SODIUM CHLORIDE 3% 500 ML IV ONE (21:00)
[2016-11-02] MEDS ORDERED: (PENDING PHARMACY ID) (Travoprost [Travatan Z] 1 DROP) OU SCH (22:00)
--- NOTE | 2016-11-02 23:17 | EKG REPORT ---
SEVERITY:- ABNORMAL ECG - SINUS RHYTHM PROBABLE LEFT ATRIAL ABNORMALITY RBBB AND LAFB LEFT VENTRICULAR HYPERTROPHY LATERAL INFARCT, OLD : Confirmed by: Jossie Dunbar 02-Nov-2016 23:16:35
[2016-11-02 23:52] LABS: APPEARANCE,URINE CLEAR; BILIRUBIN,URINE NEGATIVE (NEGATIVE); GLUCOSE, URINE NEGATIVE (NEGATIVE); KETONES,URINE NEGATIVE (NEGATIVE); LEUKOCYTE ESTERASE,URINE NEGATIVE (NEGATIVE); NITRITE,URINE NEGATIVE (NEGATIVE); PROTEIN,URINE NEGATIVE (NEGATIVE); URINE SPECIFIC GRAVITY 1.004; UROBILINOGEN,URINE NEGATIVE mg/dL (<2.0)
[2016-11-03 00:04] LABS: URINE POTASSIUM 24.4 mmol/L (22-164)
[2016-11-03 00:41] LABS: ANION GAP 6 (5-19); BLOOD UREA NITROGEN 21 mg/dL (7-20); CALCIUM 8.6 mg/dL (8.4-10.2); CARBON DIOXIDE 24 mmol/L (22-30); CHLORIDE 88 mmol/L (98-107); CREATININE RESULT 0.74 mg/dL (0.52-1.25); GLUCOSE 87 mg/dL (75-110)
[2016-11-03 00:53] LABS: SODIUM 117.7 mmol/L (137-145)
[2016-11-03] MEDS: NORMAL SALINE 1000 ML 1,000 ML IV PRN ×2 (01:50→22:03)
[2016-11-03 06:33] LABS: BLOOD UREA NITROGEN 18 mg/dL (7-20); CALCIUM 8.4 mg/dL (8.4-10.2); CARBON DIOXIDE 22 mmol/L (22-30); CHLORIDE 91 mmol/L (98-107); CREATININE RESULT 0.72 mg/dL (0.52-1.25); GLUCOSE 79 mg/dL (75-110); MAGNESIUM 1.7 mg/dL (1.6-2.3); POTASSIUM 3.7 mmol/L (3.6-5.0)
[2016-11-03 06:35] LABS: ANION GAP 8 (5-19)
[2016-11-03 06:40] LABS: SODIUM 120.9 mmol/L (137-145)
[2016-11-03] MEDS ORDERED: (PENDING PHARMACY ID) (Brimonidine Tartrate [Alphagan P] 1 DROP) OU SCH (10:00)
[2016-11-03] MEDS: ENOXAPARIN SODIUM INJ 40 MG/0.4 ML DISP.SYRIN SUBCUT SCH (11:30)
[2016-11-03] MEDS: DOCUSATE SODIUM 100 MG CAPSULE PO SCH ×2 (11:30→17:37)
[2016-11-03] MEDS ORDERED: DULOXETINE HCL 30 MG CAPSULE.DR PO ONE (12:00)
[2016-11-03 12:46] LABS: ANION GAP 7 (5-19); BLOOD UREA NITROGEN 18 mg/dL (7-20); CALCIUM 8.4 mg/dL (8.4-10.2); CARBON DIOXIDE 22 mmol/L (22-30); CHLORIDE 92 mmol/L (98-107); GLUCOSE 87 mg/dL (75-110); POTASSIUM 3.7 mmol/L (3.6-5.0)
[2016-11-03 13:02] LABS: SODIUM 120.6 mmol/L (137-145)
--- NOTE | 2016-11-03 14:25 | PDOC PROGRESS REPORT ---
Subjective Progress Note for:: 11/03/16 Subjective:: Complains of generalized pain. The daughter also reports that she has been very depressed over the last several months and has been eating less because of it. Physical Exam Vital Signs: Temp Pulse Resp BP Pulse Ox 97.6 F 75 20 109/44 L 91 L 11/03/16 10:48 11/03/16 10:48 11/03/16 10:48 11/03/16 10:48 11/03/16 10:48 Intake & Output 11/02/16 11/03/16 11/04/16 06:59 06:59 06:59 Intake Total 849 120 Output Total 2000 0 Balance -1151 120 Weight 75.5 kg General appearance: PRESENT: no acute distress Eye exam: PRESENT: conjunctiva pink. ABSENT: scleral icterus Mouth exam: PRESENT: moist, tongue midline Neck exam: ABSENT: JVD Respiratory exam: PRESENT: clear to auscultation kerrie. ABSENT: rales, rhonchi, wheezes Cardiovascular exam: PRESENT: RRR. ABSENT: diastolic murmur, rubs, systolic murmur GI/Abdominal exam: PRESENT: normal bowel sounds, soft. ABSENT: distended, guarding, mass, organolmegaly, rebound, tenderness Extremities exam: PRESENT: pedal edema - Trace pedal edema. ABSENT: calf tenderness, clubbing Neurological exam: PRESENT: alert, awake, oriented to person, oriented to place , oriented to time, oriented to situation, CN II-XII grossly intact. ABSENT: motor sensory deficit Psychiatric exam: PRESENT: anxious Skin exam: PRESENT: dry, intact, warm. ABSENT: cyanosis, rash Results Laboratory Results: 11/03/16 12:15 11/02/16 11/02/16 11/02/16 18:25 18:25 18:25 Sodium 113.5 L* Potassium 4.0 Chloride 84 L Carbon Dioxide 22 Anion Gap 8 BUN 23 H Creatinine 0.72 Est GFR ( Amer) > 60 Est GFR (Non-Af Amer) > 60 Glucose 82 Serum Osmolality 241 L Calcium 9.1 Phosphorus Magnesium TSH 1.91 Free T4 1.86 Urine Color Urine Appearance Urine pH Ur Specific [place] Urine Protein Urine Glucose (UA) Urine Ketones Urine Blood Urine Nitrite Ur Leukocyte Esterase Urine WBC (Auto) Urine Osmolality 11/02/16 11/02/16 11/03/16 23:15 23:15 00:20 Sodium 117.7 L* Potassium 4.0 Chloride 88 L Carbon Dioxide 24 Anion Gap 6 BUN 21 H Creatinine 0.74 Est GFR ( Amer) > 60 Est GFR (Non-Af Amer) > 60 Glucose 87 Serum Osmolality Calcium 8.6 Phosphorus Magnesium TSH Free T4 Urine Color STRAW Urine Appearance CLEAR Urine pH 7.0 Ur Specific [place] 1.004 Urine Protein NEGATIVE Urine Glucose (UA) NEGATIVE Urine Ketones NEGATIVE Urine Blood NEGATIVE Urine Nitrite NEGATIVE Ur Leukocyte Esterase NEGATIVE Urine WBC (Auto) 2 Urine Osmolality 218 L 11/03/16 11/03/16 06:01 12:15 Sodium 120.9 L* 120.6 L* Potassium 3.7 3.7 Chloride 91 L 92 L Carbon Dioxide 22 22 Anion Gap 8 7 BUN 18 18 Creatinine 0.72 0.70 Est GFR ( Amer) > 60 > 60 Est GFR (Non-Af Amer) > 60 > 60 Glucose 79 87 Serum Osmolality Calcium 8.4 8.4 Phosphorus 4.0 Magnesium 1.7 TSH Free T4 Urine Color Urine Appearance Urine pH Ur Specific [place] Urine Protein Urine Glucose (UA) Urine Ketones Urine Blood Urine Nitrite Ur Leukocyte Esterase Urine WBC (Auto) Urine Osmolality Impressions: Chest X-Ray 11/02/16 14:41 IMPRESSION: COPD. NO ACUTE RADIOGRAPHIC FINDING IN THE CHEST. Assessment & Plan - Diagnosis (1) Hyponatremia Is this a current diagnosis for this admission?: Yes Plan: The patient's hyponatremia was secondary to diuretic use. It is improving. (2) Depression Is this a current diagnosis for this admission?: Yes Plan: Patient has complaints of chronic pain and has had a decreased appetite for the last several months according the daughter. Patient is depressed. We will start her on Cymbalta for depression as well as for her chronic pain. (3) COPD (chronic obstructive pulmonary disease) Qualifiers: COPD type: unspecified COPD Qualified Code(s): J44.9 - Chronic obstructive pulmonary disease, unspecified Is this a current diagnosis for this admission?: Yes (4) Essential hypertension Is this a current diagnosis for this admission?: Yes (5) Multiple sclerosis Is this a current diagnosis for this admission?: Yes - Time Time Spent with patient: 25-34 minutes - Inpatient Certification Medical Necessity: Need Close Monitoring Due to Risk of Patient Decompensation, Need For IV Fluids
[2016-11-03 18:57] LABS: BLOOD UREA NITROGEN 19 mg/dL (7-20); CALCIUM 8.3 mg/dL (8.4-10.2); CARBON DIOXIDE 22 mmol/L (22-30); CHLORIDE 93 mmol/L (98-107); CREATININE RESULT 0.69 mg/dL (0.52-1.25); GLUCOSE 95 mg/dL (75-110); POTASSIUM 3.7 mmol/L (3.6-5.0)
[2016-11-03 19:12] LABS: ANION GAP 6 (5-19); SODIUM 121.4 mmol/L (137-145)
[2016-11-03] MEDS: LATANOPROST 0.005% OPH SOLN 2.5 ML OU SCH (22:05)
[2016-11-04 00:47] LABS: BLOOD UREA NITROGEN 17 mg/dL (7-20); CALCIUM 8.3 mg/dL (8.4-10.2); CREATININE RESULT 0.69 mg/dL (0.52-1.25); GLUCOSE 82 mg/dL (75-110)
[2016-11-04 00:58] LABS: ANION GAP 7 (5-19); CARBON DIOXIDE 22 mmol/L (22-30); CHLORIDE 93 mmol/L (98-107); POTASSIUM 3.7 mmol/L (3.6-5.0); SODIUM 121.5 mmol/L (137-145)
[2016-11-04] MEDS: NORMAL SALINE 1000 ML 1,000 ML IV PRN ×2 (05:00→21:31)
[2016-11-04] MEDS: LANSOPRAZOLE 30 MG TAB.RAP.DR PO SCH (05:03)
[2016-11-04 06:31] LABS: ANION GAP 8 (5-19); BLOOD UREA NITROGEN 16 mg/dL (7-20); CALCIUM 7.9 mg/dL (8.4-10.2); CARBON DIOXIDE 20 mmol/L (22-30); CHLORIDE 95 mmol/L (98-107); CREATININE RESULT 0.66 mg/dL (0.52-1.25); GLUCOSE 76 mg/dL (75-110); MAGNESIUM 1.8 mg/dL (1.6-2.3); POTASSIUM 3.4 mmol/L (3.6-5.0); SODIUM 122.9 mmol/L (137-145)
[2016-11-04] MEDS: DULOXETINE HCL 30 MG CAPSULE.DR PO SCH (11:04)
[2016-11-04] MEDS: LACTULOSE SYRUP 20 GM/30 ML UDCUP PO SCH ×2 (11:04→21:26)
[2016-11-04] MEDS: DOCUSATE SODIUM 100 MG CAPSULE PO SCH ×2 (11:04→19:16)
[2016-11-04] MEDS: ENOXAPARIN SODIUM INJ 40 MG/0.4 ML DISP.SYRIN SUBCUT SCH (11:05)
--- NOTE | 2016-11-04 11:07 | PDOC PROGRESS REPORT ---
Subjective Progress Note for:: 11/04/16 Subjective:: Complains of generalized pain. She thinks the Cymbalta might have already helped her pain. Physical Exam Vital Signs: Temp Pulse Resp BP Pulse Ox 98.2 F 74 18 125/46 L 94 11/04/16 07:48 11/04/16 07:48 11/04/16 07:48 11/04/16 07:48 11/04/16 07:48 Intake & Output 11/03/16 11/04/16 11/05/16 06:59 06:59 06:59 Intake Total 849 1658 Output Total 2000 200 Balance -1151 1458 Weight 75.5 kg 73.5 kg General appearance: PRESENT: no acute distress Eye exam: PRESENT: conjunctiva pink. ABSENT: scleral icterus Mouth exam: PRESENT: moist, tongue midline Neck exam: ABSENT: JVD Respiratory exam: PRESENT: clear to auscultation kerrie. ABSENT: rales, rhonchi, wheezes Cardiovascular exam: PRESENT: RRR. ABSENT: diastolic murmur, rubs, systolic murmur GI/Abdominal exam: PRESENT: normal bowel sounds, soft. ABSENT: distended, guarding, mass, organolmegaly, rebound, tenderness Extremities exam: PRESENT: pedal edema - Trace edema. ABSENT: calf tenderness, clubbing Neurological exam: PRESENT: alert, awake, oriented to person, oriented to place , oriented to time, oriented to situation, CN II-XII grossly intact. ABSENT: motor sensory deficit Psychiatric exam: PRESENT: appropriate affect Skin exam: PRESENT: dry, intact, warm. ABSENT: cyanosis, rash Results Laboratory Results: 11/04/16 05:08 11/03/16 11/03/16 11/04/16 12:15 18:15 00:15 Sodium 120.6 L* 121.4 L 121.5 L Potassium 3.7 3.7 3.7 Chloride 92 L 93 L 93 L Carbon Dioxide 22 22 22 Anion Gap 7 6 7 BUN 18 19 17 Creatinine 0.70 0.69 0.69 Est GFR ( Amer) > 60 > 60 > 60 Est GFR (Non-Af Amer) > 60 > 60 > 60 Glucose 87 95 82 Calcium 8.4 8.3 L 8.3 L Magnesium 11/04/16 05:08 Sodium 122.9 L Potassium 3.4 L Chloride 95 L Carbon Dioxide 20 L Anion Gap 8 BUN 16 Creatinine 0.66 Est GFR ( Amer) > 60 Est GFR (Non-Af Amer) > 60 Glucose 76 Calcium 7.9 L Magnesium 1.8 Impressions: Chest X-Ray 11/02/16 14:41 IMPRESSION: COPD. NO ACUTE RADIOGRAPHIC FINDING IN THE CHEST. Assessment & Plan - Diagnosis (1) Hyponatremia Is this a current diagnosis for this admission?: Yes Plan: The patient's hyponatremia was secondary to diuretic use. It is improving. Continue with IV fluids. (2) Depression Is this a current diagnosis for this admission?: Yes Plan: Patient has complaints of chronic pain and has had a decreased appetite for the last several months according the daughter. Patient is depressed. She has been started on Cymbalta for depression as well as for her chronic pain. (3) COPD (chronic obstructive pulmonary disease) Qualifiers: COPD type: unspecified COPD Qualified Code(s): J44.9 - Chronic obstructive pulmonary disease, unspecified Is this a current diagnosis for this admission?: Yes (4) Essential hypertension Is this a current diagnosis for this admission?: Yes Plan: Blood pressures are stable. (5) Multiple sclerosis Is this a current diagnosis for this admission?: Yes - Time Time Spent with patient: 25-34 minutes - Inpatient Certification Medical Necessity: Need Close Monitoring Due to Risk of Patient Decompensation, Need For IV Fluids - Plan Summary Plan Summary: If she continues to improve we can hopefully discharge soon. Patient is weak and requests to go to rehab for physical therapy.
[2016-11-04] MEDS: LATANOPROST 0.005% OPH SOLN 2.5 ML OU SCH (21:27)
[2016-11-05] MEDS: NORMAL SALINE 1000 ML 1,000 ML IV PRN (04:34)
[2016-11-05 05:01] LABS: ABSOLUTE EOSINOPHILS # (AUTO) 0.1 10^3/uL (0.0-0.6); ABSOLUTE MONOCYTES (AUTO) 0.4 10^3/uL (0.1-1.4); ABSOLUTE NEUT (AUTO) 5.7 10^3/uL (1.7-8.2); BASOPHILS % (AUTO) 0.5 % (0-2); EOSINOPHILS % (AUTO) 1.5 % (0-6); HEMATOCRIT 33.5 % (36.0-47.0); HEMOGLOBIN 11.7 g/dL (12.0-15.5); HGB HCT DIFFERENCE 1.6; LYMPHOCYTES % (AUTO) 24.6 % (13-45); MEAN CORPUSCULAR HEMOGLOBIN 28.9 pg (27.0-33.4); MEAN CORPUSCULAR VOLUME 83 fl (80-97); MONOCYTES % (AUTO) 5.1 % (3-13); RED BLOOD COUNT 4.06 10^6/uL (3.72-5.28); RED CELL DISTRIBUTION WIDTH 14.2 % (11.5-14.0); SEGMENTED NEUTROPHILS % (AUTO) 68.3 % (42-78); WHITE BLOOD COUNT 8.3 10^3/uL (4.0-10.5)
[2016-11-05] MEDS: LANSOPRAZOLE 30 MG TAB.RAP.DR PO SCH (05:08)
[2016-11-05 05:24] LABS: ANION GAP 7 (5-19); BLOOD UREA NITROGEN 13 mg/dL (7-20); CALCIUM 7.9 mg/dL (8.4-10.2); CARBON DIOXIDE 20 mmol/L (22-30); CHLORIDE 98 mmol/L (98-107); GLUCOSE 86 mg/dL (75-110); POTASSIUM 3.6 mmol/L (3.6-5.0)
[2016-11-05] MEDS ORDERED: NA PHOS,M-B/NA PHOS,DI-BA (ADULT) 133 ML ENEMA PR ONE (10:00)
[2016-11-05] MEDS: DULOXETINE HCL 30 MG CAPSULE.DR PO SCH (10:28)
[2016-11-05] MEDS: DOCUSATE SODIUM 100 MG CAPSULE PO SCH (10:28)
[2016-11-05] MEDS: LACTULOSE SYRUP 20 GM/30 ML UDCUP PO SCH (10:28)
[2016-11-05] MEDS: ENOXAPARIN SODIUM INJ 40 MG/0.4 ML DISP.SYRIN SUBCUT SCH (10:29)
[2016-11-05] MEDS ORDERED: ONDANSETRON HCL INJ/PF 4 MG/2 ML SDV IV PRN (11:00)
--- NOTE | 2016-11-05 13:32 | PDOC TRANSFER SUMMARY ---
General - Admit/Disc Date/PCP Admission Date/Primary Care Provider: 11/02/16 18:18 ASAF CHUA DO Discharge Date: 11/05/16 - Discharge Diagnosis (1) Hyponatremia Is this a current diagnosis for this admission?: Yes Summary: Maurice to be secondary to diuretic use. (2) Depression Is this a current diagnosis for this admission?: Yes Summary: Started on Cymbalta. (3) COPD (chronic obstructive pulmonary disease) Is this a current diagnosis for this admission?: Yes (4) Essential hypertension Is this a current diagnosis for this admission?: Yes (5) Multiple sclerosis Is this a current diagnosis for this admission?: Yes (6) Breast cancer Is this a current diagnosis for this admission?: Yes Summary: Possible breast cancer. Patient has a large left breast mass. She does not want biopsy or treatment of this. - Additional Information Resuscitation Status: Full Code Discharge Diet: Cardiac Discharge Activity: Activity As Tolerated Home Medications: Brimonidine Tartrate [Alphagan P] 1 drop OU BID 11/02/16 Polyethylene Glycol 3350 [Miralax Powder 17 gm/Packet] 1 packet PO QHS 11/02/16 Travoprost [Travatan Z] 1 drop OU QHS 11/02/16 Acetaminophen [Tylenol 325 mg Tablet] 650 mg PO Q4HP PRN tablet 11/05/16 Docusate Sodium [Colace 100 mg Capsule] 100 mg PO BID capsule 11/05/16 Duloxetine HCl [Cymbalta] 60 mg PO DAILY #30 capsule. 11/05/16 Lactulose [Cephulac Syrup 20 gm/30 ml Udcup] 10 gm PO Q12 udc 11/05/16 Lansoprazole [Prevacid 30 mg Odt Tablet] 30 mg PO Q6AM tab.rap. 11/05/16 Latanoprost [Xalatan 0.005% Oph Soln 2.5 ml] 1 drop OU QHS bottle 11/05/16 History of Present Illness Admission Date/PCP: 11/02/16 18:18 ASAF CHUA DO History of Present Illness: JANNIE REYNAGA is an 85 year old female, with history of hypertension who was started on diuretics recently approximately 2-3 months was brought to the hospital because of ankle edema. There is no paroxysmal nocturnal dyspnea nor any orthopnea. No chest pain or shortness of breath as well. Patient has chronic limited mobility due to musculoskeletal pain brought about by strain and sprain of her abdominal muscles she sustained about 4-6 months ago after hernia surgery. She had a history of multiple sclerosis and for the past 2 years she had limited mobility due to fear of falling. She has chronic lower extremity weakness. For the past 2 days she was noted to have ankle edema and edema of the feet as well bilaterally. She was seen by visiting nurse who reportedly advised him to go to the emergency room for evaluation. The patient denies any wheezing, fever, leg pain, chest pain nor pleurisy. In the emergency room her serum sodium was found to be low at 112. Patient was given normal saline. She was then referred for admission. Family noted that the patient having some depressed mood intermittently, and likewise more irritable than usual. Hospital Course Hospital Course: 85-year-old female who was brought into the hospital because of lower extremity edema. The patient when she was here was found to have significant hyponatremia. She had no evidence for congestive heart failure. The patient was taken off of her diuretics and given normal saline. Her sodium has improved and on the day of discharge was up to 125. She has had no mental status changes associated with this. Her sodium is still low but is improved dramatically on admission and feel that she is stable for discharge. The patient while hospitalized also had complaints of feeling depressed and has not been eating well over the last several months. The patient's daughter also agrees that the patient has been depressed. She has been started on Cymbalta. On the day of discharge the patient pointed out that she had a large left breast mass for the last several months. On exam she has a mass that is approximately 2" x 4" in size in the left breast in the subareolar area. The patient most likely has breast cancer and this was discussed with the daughter and the . The family as well as the patient does not want any workup done. Given her age she feels that even a biopsy would be too invasive at this time. She wishes to remain a DO NOT RESUSCITATE. The patient has a history of hypertension and was on diuretics as well as doxazosin for blood pressure control. All of those have been stopped and her blood pressure has remained stable while she is here in the hospital. We will not start her on any antihypertensives at this time. She also has a history of COPD but that was stable during this hospitalization. Patient was evaluated by physical therapy and it was felt that she would benefit from a short-term rehab stay. She will be sent [facility]. Physical Exam Vital Signs: Temp Pulse Resp BP Pulse Ox 97.5 F 66 22 H 121/57 L 95 11/05/16 11:06 11/05/16 11:06 11/05/16 11:06 11/05/16 11:06 11/05/16 11:06 Intake & Output 11/04/16 11/05/16 11/06/16 06:59 06:59 06:59 Intake Total 1658 2362 Output Total 200 500 Balance 1458 1862 Weight 73.5 kg 76.2 kg General appearance: PRESENT: no acute distress, obese Eye exam: PRESENT: conjunctiva pink. ABSENT: scleral icterus Mouth exam: PRESENT: moist, tongue midline Neck exam: ABSENT: JVD Respiratory exam: PRESENT: clear to auscultation kerrie. ABSENT: rales, rhonchi, wheezes Cardiovascular exam: PRESENT: RRR. ABSENT: diastolic murmur, rubs, systolic murmur Vascular exam: PRESENT: normal capillary refill GI/Abdominal exam: PRESENT: normal bowel sounds, soft. ABSENT: distended, guarding, mass, organolmegaly, rebound, tenderness Extremities exam: ABSENT: calf tenderness, clubbing, pedal edema Neurological exam: PRESENT: alert, awake, oriented to person, oriented to place , oriented to time, oriented to situation, CN II-XII grossly intact. ABSENT: motor sensory deficit Skin exam: PRESENT: other - Patient's left breast shows a subareolar mass that is 2" x 4" in size. It is not fixed and nontender but very hard consistent with a carcinoma. Results Laboratory Results: 11/05/16 04:36 11/05/16 04:36 11/05/16 11/05/16 04:36 04:36 WBC 8.3 RBC 4.06 Hgb 11.7 L Hct 33.5 L MCV 83 MCH 28.9 MCHC 35.0 RDW 14.2 H Plt Count 134 L Seg Neutrophils % 68.3 Lymphocytes % 24.6 Monocytes % 5.1 Eosinophils % 1.5 Basophils % 0.5 Absolute Neutrophils 5.7 Absolute Lymphocytes 2.0 Absolute Monocytes 0.4 Absolute Eosinophils 0.1 Absolute Basophils 0.0 Sodium 125.0 L Potassium 3.6 Chloride 98 Carbon Dioxide 20 L Anion Gap 7 BUN 13 Creatinine 0.60 Est GFR ( Amer) > 60 Est GFR (Non-Af Amer) > 60 Glucose 86 Calcium 7.9 L Impressions: Chest X-Ray 11/02/16 14:41 IMPRESSION: COPD. NO ACUTE RADIOGRAPHIC FINDING IN THE CHEST. Transfer Plan - Disposition Transfer Plan: Patient is to be transferred to [facility] for rehab. - Time Spent with Patient Time spent with patient: Greater than 30 Minutes Qualifiers PATEINT BEING DISCHARGED WITH ANY OF THE FOLLOWING DIAGNOSIS?: No Plan Time Spent: Greater than 30 Minutes
[2016-11-05 15:26] VITALS: BP 145/75
[2016-11-05] MEDS ORDERED: BRIMONIDINE TARTRATE 0.2% OPH SOLN 5 ML OU SCH (22:00)
[2016-11-06] MEDS ORDERED: LANSOPRAZOLE 30 MG TAB.RAP.DR PO SCH (06:00)
== END 2016-11-05 17:26 | DRG 641 ==
LOC: ER 14:22 → EH 16:43 → OBSVTOIN 18:18 → 5 19:03 → 3S 19:35
PROVIDERS: ADMIT Family Medicine; ATTEND Family Medicine
DX: E87.1 Hypo-osmolality and hyponatremia (principal); T50.2X5A Adverse effect of carbonic-anhydrase inhibitors, benzothiadiazides and other diuretics, initial encounter; F32.9 Major depressive disorder, single episode, unspecified; J44.9 Chronic obstructive pulmonary disease, unspecified; I10 Essential (primary) hypertension; G35 Multiple sclerosis; Z66 Do not resuscitate; C50.012 Malignant neoplasm of nipple and areola, left female breast; M19.90 Unspecified osteoarthritis, unspecified site; K59.00 Constipation, unspecified; R60.9 Edema, unspecified; Z79.899 Other long term (current) drug therapy; Z88.2 Allergy status to sulfonamides; Z82.49 Family history of ischemic heart disease and other diseases of the circulatory system
CPT/HCPCS: 36415; 71010; 80048; 80053; 81001; 83735; 83880; 83930; 83935; 84100; 84133; 84300; 84439; 84443; 84484; 85025; 93005; 93010; 96360; 96361; 99285; G8978-GP; G8979-GP; J1650; J3490; J7030